=== PATIENT | female | born 1940 | race Caucasian/White ===

== ENCOUNTER 2020-12-28 04:51 | Inpatient (IN) ==
[~2020-12-28 04:51] MED LIST: ACETAMINOPHEN 500 MG TABLET PO ONE; FAMOTIDINE 20 MG TABLET PO ONE; GABAPENTIN 400 MG CAPSULE PO ONE; LACTATED RINGERS 1,000 ML IV SCH; VANCOMYCIN INJ 1,000 MG in SODIUM CHLORIDE 0.9% 250 ML IV ONE; ceFAZolin 2,000 MG/50 ML DUPLEX IV ONE
[2020-12-28] MEDS ORDERED: FAMOTIDINE 20 MG TABLET ONE (06:24)
[2020-12-28] MEDS ORDERED: GABAPENTIN 400 MG CAPSULE ONE (06:24)
[2020-12-28] MEDS ORDERED: ACETAMINOPHEN 500 MG TABLET ONE (06:25)
[2020-12-28] MEDS ORDERED: ACETAMINOPHEN INJ 0 MG/0 ML VIAL IV ONE (06:27)
[2020-12-28] MEDS ORDERED: DEXAMETHASONE 4 MG/1 ML VIAL ONE ×3 (06:27→06:47)
[2020-12-28] MEDS ORDERED: ONDANSETRON 4 MG/2 ML VIAL ONE (06:27)
[2020-12-28] MEDS ORDERED: LIDOCAINE 2% 5 ML VIAL ONE (06:27)
[2020-12-28] MEDS ORDERED: ROCURONIUM 50 MG/5 ML VIAL IV ONE (06:27)
[2020-12-28] MEDS ORDERED: propofoL 200 MG/20 ML VIAL IV ONE (06:27)
[2020-12-28] MEDS ORDERED: SUCCINYLCHOLINE 200 MG/10 ML VIAL ONE (06:27)
[2020-12-28] MEDS ORDERED: fentaNYL 100 MCG/2 ML VIAL ONE (06:30)
[2020-12-28 06:33] LABS: Basophils # 0.1 10*3/uL (0.0-0.2); Basophils % 0.4 % (0.0-0.8); Eosinophils # 0.1 10*3/uL (0.0-0.87); Eosinophils % 0.5 % (0.00-10.9); Immature Granulocytes % 5.2 %; Immature Granulocytes Absolute 0.73 #; Lymphocytes # 1.4 10*3/uL (1.4-4.0); Mean Corpuscular HGB Conc 30.3 GM/DL (32-36); Mean Corpuscular Volume 97.6 FL (87-102); Monocytes % 6.5 % (1.7-12.7); Neutrophils % 77.4 % (38.7-73.9); Platelet Count 390 T/CUMM (130-400); Red Blood Count 3.38 MC/CUMM (3.8-5.5); Red Cell Distribution Width 14.5 % (9.3-17.3); White Blood Count 14.2 T/CUMM (4-12)
[2020-12-28] MEDS ORDERED: ALBUTEROL/IPRATROPIUM 3 ML NEB RESP TX ONE (06:35)
[2020-12-28] MEDS ORDERED: MIDAZOLAM 2 MG/2 ML VIAL ONE (06:35)
[2020-12-28] MEDS ORDERED: ROPIVACAINE 0.5% 30 ML VIAL ONE ×2 (06:43→06:47)
[2020-12-28] MEDS ORDERED: LIDOCAINE 1% 5 ML VIAL ONE (06:43)
[2020-12-28 06:45] LABS: PT Patient Result 11.4 SECS (10.5-12.0); Partial Thromboplastin Time 23.4 SECS (23.9-33.8)
[2020-12-28 06:52] LABS: Band Neutrophils 2 % (0-10); Eosinophils 1 % (0-10); Hypochromasia 1+; Lymphocytes 8 % (20-55); Microcytosis 1+; Platelet Estimate Adequate; Segmented Neutrophils 86 % (50-85); Total Cells Counted 100
[2020-12-28 06:56] LABS: Albumin 2.7 G/DL (3.4-5.0); Osmolality,Calculated 280.4 MOS/KG (273-304); Potassium 3.5 MMOL/L (3.5-5.1); Total Protein 7.2 G/DL (6.4-8.2)
[2020-12-28] MEDS ORDERED: ceFAZolin 2,000 MG/50 ML DUPLEX IV ONE (07:00)
[2020-12-28] MEDS ORDERED: VANCOMYCIN INJ 1,000 MG in SODIUM CHLORIDE 0.9% 250 ML IV ONE (07:00)
[2020-12-28] MEDS ORDERED: PHENYLEPHRINE 10 MG/1 ML VIAL IV ONE (07:21)
[2020-12-28] MEDS ORDERED: ETOMIDATE 40 MG/20 ML VIAL IV ONE (07:43)
[2020-12-28] MEDS ORDERED: SODIUM CHLORIDE 0.9% 250 ML IV ONE (07:44)
[2020-12-28] MEDS ORDERED: BACITRACIN OINT 0.9 GM PACK TOP ONE (08:41)
[2020-12-28] MEDS ORDERED: NEOSTIGMINE 10 MG/10 ML VIAL ONE (08:58)
[2020-12-28] MEDS ORDERED: SODIUM CHLORIDE 0.9% 100 ML IV ONE (09:12)
[2020-12-28] MEDS ORDERED: TRANEXAMIC ACID 1,000 MG/10 ML VIAL ONE (09:12)
[2020-12-28] MEDS ORDERED: SEVOFLURANE 1 UNIT/15 MINUTE INH ONE (09:22)
[2020-12-28] MEDS ORDERED: ONDANSETRON 4 MG/2 ML VIAL IV PRN ×2 (09:36→09:45)
[2020-12-28] MEDS ORDERED: diphenhydrAMINE CAP 25 MG CAPSULE PO PRN (09:36)
[2020-12-28] MEDS ORDERED: MORPHINE 2 MG/1 ML SYRINGE IV PRN ×2 (09:38)
[2020-12-28] MEDS ORDERED: MORPHINE 10 MG/1 ML VIAL IV PRN (09:45)
[2020-12-28] MEDS: LACTATED RINGERS 1,000 ML IV SCH ×2 (17:41→20:48)
[2020-12-28] MEDS: MESALAMINE 0.375 GM PO SCH (20:47)
[2020-12-28] MEDS: APIXABAN 2.5 MG TABLET PO SCH (20:47)
[2020-12-29 05:24] LABS: Basophils % 0.3 % (0.0-0.8); Eosinophils % 0.2 % (0.00-10.9); Hematocrit 26.6 VOL% (35.7-47.0); Hemoglobin 8.3 GM/DL (12.0-16.0); Immature Granulocytes % 3.5 %; Immature Granulocytes Absolute 0.46 #; Lymphocytes # 1.5 10*3/uL (1.4-4.0); Lymphocytes % 11.2 % (21.3-54.2); Mean Corpuscular HGB Conc 31.2 GM/DL (32-36); Mean Corpuscular Volume 97.1 FL (87-102); Mean Platelet Volume 9.4 FL (9.6-12.0); Monocytes % 7.4 % (1.7-12.7); Neutrophils % 77.4 % (38.7-73.9); Platelet Count 321 T/CUMM (130-400); Red Blood Count 2.74 MC/CUMM (3.8-5.5); Red Cell Distribution Width 14.6 % (9.3-17.3); White Blood Count 13.2 T/CUMM (4-12)
[2020-12-29 05:35] LABS: Calcium 7.9 MG/DL (8.5-10.1); Potassium 3.7 MMOL/L (3.5-5.1)
[2020-12-29] MEDS: LACTATED RINGERS 1,000 ML IV SCH (05:46)
[2020-12-29] MEDS: MESALAMINE 0.375 GM PO SCH ×2 (09:21→20:06)
[2020-12-29] MEDS: MULTIVITAMIN (OCUVITE) TABLET PO SCH (09:21)
[2020-12-29] MEDS: PANTOPRAZOLE 40 MG TABLET PO SCH (09:21)
[2020-12-29] MEDS: APIXABAN 2.5 MG TABLET PO SCH ×2 (12:08→20:06)
[2020-12-29] MEDS: MAGNESIUM HYDROXIDE SUSP 30 ML UDCUP PO PRN (12:08)
[2020-12-30] MEDS: MULTIVITAMIN (OCUVITE) TABLET PO SCH (08:38)
[2020-12-30] MEDS: PANTOPRAZOLE 40 MG TABLET PO SCH (08:38)
[2020-12-30] MEDS: MESALAMINE 0.375 GM PO SCH ×2 (08:38→20:15)
[2020-12-30] MEDS: APIXABAN 2.5 MG TABLET PO SCH ×2 (08:38→20:15)
[2020-12-30] MEDS: MAGNESIUM HYDROXIDE SUSP 30 ML UDCUP PO PRN (08:38)
[2020-12-30] MEDS: cefTRIAXone 1,000 MG in SODIUM CHLORIDE 0.9% 100 ML IV SCH (08:44)
[2020-12-30] MEDS: AZITHROMYCIN INJ 500 MG in SODIUM CHLORIDE 0.9% 250 ML IV SCH (10:06)
[2020-12-30] MEDS: FUROSEMIDE 40 MG/4 ML VIAL IV SCH ×2 (11:50→17:30)
[2020-12-30] MEDS: ALBUTEROL/IPRATROPIUM 3 ML NEB RESP TX SCH ×2 (12:43→21:28)
[2020-12-31] MEDS: ALBUTEROL/IPRATROPIUM 3 ML NEB RESP TX SCH ×2 (01:36→07:10)
[2020-12-31 05:06] LABS: Basophils % 0.2 % (0.0-0.8); Eosinophils # 0.1 10*3/uL (0.0-0.87); Hematocrit 25.6 VOL% (35.7-47.0); Hemoglobin 8.1 GM/DL (12.0-16.0); Immature Granulocytes % 1.8 %; Immature Granulocytes Absolute 0.19 #; Lymphocytes % 9.8 % (21.3-54.2); Mean Corpuscular HGB Conc 31.6 GM/DL (32-36); Mean Corpuscular Volume 95.9 FL (87-102); Mean Platelet Volume 9.4 FL (9.6-12.0); Monocytes % 9.1 % (1.7-12.7); Neutrophils % 78.1 % (38.7-73.9); Platelet Count 312 T/CUMM (130-400); Red Blood Count 2.67 MC/CUMM (3.8-5.5); Red Cell Distribution Width 14.7 % (9.3-17.3); White Blood Count 10.3 T/CUMM (4-12)
[2020-12-31 05:32] LABS: Calcium 7.9 MG/DL (8.5-10.1); Osmolality,Calculated 282.3 MOS/KG (273-304); Potassium 3.5 MMOL/L (3.5-5.1)
[2020-12-31 05:34] LABS: Platelet Estimate Normal
[2020-12-31 05:35] LABS: Anisocytosis 2+
[2020-12-31] MEDS ORDERED: SODIUM PHOSPHATE ENEMA 133 ML BOTTLE RECTAL PRN (07:50)
[2020-12-31] MEDS ORDERED: BISACODYL 10 MG SUPP RECTAL ONE (08:00)
[2020-12-31] MEDS: PANTOPRAZOLE 40 MG TABLET PO SCH (08:44)
[2020-12-31] MEDS: FUROSEMIDE 40 MG/4 ML VIAL IV SCH (08:44)
[2020-12-31] MEDS: cefTRIAXone 1,000 MG in SODIUM CHLORIDE 0.9% 100 ML IV SCH (08:44)
[2020-12-31] MEDS: APIXABAN 2.5 MG TABLET PO SCH (08:44)
[2020-12-31] MEDS: MULTIVITAMIN (OCUVITE) TABLET PO SCH (08:44)
[2020-12-31] MEDS: MESALAMINE 0.375 GM PO SCH (08:47)
[2020-12-31] MEDS: AZITHROMYCIN INJ 500 MG in SODIUM CHLORIDE 0.9% 250 ML IV SCH (10:49)
[2020-12-31 15:38] VITALS: BP 148/56
== END 2020-12-31 13:05 | disposition swing bed (61) | DRG 483 ==
LOC: N.OR 04:51 → N.SDSINP 04:57 → N.3E 10:53
PROVIDERS: ADMIT Orthopaedic Surgery; ATTEND Orthopaedic Surgery